=== PATIENT | female | born 1985 | race Caucasian/White ===

== ENCOUNTER 2016-04-27 22:40 | Emergency (ER) | payer OTHER ==
--- NOTE | ~2016-04-27 | CT4 ---
[facility] A Service of [facility] RADIOLOGY TEXT RESULTS PATIENT: TRIPP WING LOCATION: [facility] : 87 UNIT #: [id number] AGE: [address]: Neno Brenner MD SEX: F ORDER DR: [id number] [facility] [address] [place], [place] [address] [id number] MR#: [id number] Acc #: [id number] NAME: TRIPP WING : 1985 SEX: F STUDY DATE/TIME: 04/27/2016 23:22 UNIT: [facility] ROOM: STUDY DESCRIPTION: CT Abd and Pelv Wo Cont Attending Physician: Neno Brenner Ordering Physician: Cristian Harrell M.D. Primary Care Physician: Brianna uKo M.D. MEDICAL IMAGING REPORT This report is preliminary unless electronic signature is present EXAM CT abdomen and pelvis, noncontrast, kidney stone protocol, 04/27/2016 HISTORY 30-year-old female in the ED complaining of 4-day history of right flank pain. Prior history of kidney stones. TECHNIQUE CT examination of the abdomen and pelvis was performed without oral or IV contrast using kidney stone protocol. This CT exam was performed with one or more of the following radiation dose reduction techniques: automatic exposure control, adjustment of mA and/or kV according to patient size, and iterative reconstruction. COMPARISON CT stone study 03/21/2016. FINDINGS Abdomen: 2 mm nonobstructing calculus in the right mid kidney is unchanged. Kidneys, ureters and urinary bladder are otherwise negative. No ureteral stone material is seen, there is no evidence of urinary obstruction at this time. Cholecystectomy. No bile duct dilatation. The liver, pancreas and spleen are negative. Small bowel and colon are normal in caliber and appearance. The appendix is normal. Normal-caliber abdominal aorta. Pelvis: Uterus, adnexal regions, bladder and rectum are within normal limits. No inguinal hernia. Limited lung base images show no active disease in the lower chest. IMPRESSION [facility] A Service of [facility] RADIOLOGY TEXT RESULTS PATIENT: TRIPP WING [id number] [birth year] UNIT #: [id number] AGE: [address]: Neno Brenner MD SEX: F ORDER DR: 1. No acute abnormality within the abdomen or pelvis. 2. 2 mm nonobstructing right mid renal calculus. 3. The appendix is normal. 4. No change since 03/21/2016. Dictated by... Kishan Dong M.D. THIS IS AN ELECTRONICALLY VERIFIED REPORT Kishan Dong M.D. at 04/28/2016 9:42 PM ABHISHEK/miriam TD: 04/28/2016 11:52 JOB #: [id number] MEDICAL IMAGING REPORT Page 1 of 1 COPY
[2016-04-27 19:08] LABS: URINE SOURCE CLEAN CATCH
[2016-04-27 19:14] LABS: URINE APPEARANCE CLEAR; URINE BILIRUBIN NEG (NEG); URINE BLOOD 2+ (NEG); URINE COLOR YELLOW; URINE GLUCOSE NEG (NEG); URINE KETONE NEG (NEG); URINE LEUKOCYTE ESTERASE NEG (NEG); URINE NITRATE NEG (NEG); URINE PH 6.5 (5-8); URINE PROTEIN NEG (NEG); URINE SPECIFIC GRAVITY 1.009 (1.003-1.035); URINE UROBILINOGEN 0.2 MG/DL (NEG)
[2016-04-27 19:16] LABS: URINE BACTERIA AUWI NEG (NEGATIVE); URINE SQUAMOUS EPITHELIAL CELL NONE SEEN /[HPF]
[2016-04-27 19:32] LABS: CULTURE INDICATED? NO
[~2016-04-27 22:40] MED LIST: ACETAMINOPHEN PR; ATIVAN; ATIVAN PO; COREG PO; CREON 10 CAPSU249 MG; DIFLUCAN PO; FLAGYL PO; GEODAN; HUMALOG MIX 75/23 ML; HUMALOG100 U/M1; HUMALOG100 U/ML; INSULIN PUMP SUBQ; LANTUS100 U/ML; LANTUS100 U/ML SUBQ; LANTUS100 UNITS/ SUBQ; LEVAQUIN PO; LEXAPRO; LUNESTA; MELATONIN3 MG; NEXIUM; NICOTINE T1 PATCH .2; NOVOLIN R100 U/ML; NOVOLOG100 U/ML; NOVOLOG100 U/ML SUBQ; NOVOLOG100 UNITS/ SUBQ; PHENERGAN; PRILOSEC PO; PROBIOTIC250 MG PO; PROTONIX; ROBAXIN PO; SEROQUEL; TOPAMAX; TOPAMAX PO; TYLENOL325 M1 PO; ULTRAM PO; WELLBUTRIN XL; ZOFRAN ODT4 MG PO; ZOLOFT
[2016-04-27 23:29] LABS: BASOPHIL# 0.1 X10e3 (0-0.3); BASOPHIL% 0.7 % (0-2.5); EOSINOPHIL# 0.4 X10e3 (0-0.7); EOSINOPHIL% 3.6 % (0.0-7.0); HEMATOCRIT 40.5 % (35.0-45.0); HEMOGLOBIN 13.3 gm/dL (12.0-16.0); LYMPHOCYTE# 4.2 X10e3 (1.0-3.5); LYMPHOCYTE% 41.9 % (17.0-45.0); MEAN CELL VOLUME 95.3 FL (83-96); MEAN CORPUSCULAR HEMOGLOBIN 31.2 PG (28-34); MEAN CORPUSCULAR HGB CONC 32.8 g/dL (30-36); MEAN PLATELET VOLUME 8.7 FL (6.5-11.5); MONOCYTE# 0.8 X10e3 (0-1.0); MONOCYTE% 8.2 % (3.0-12.0); NEUTROPHIL# 4.6 X10e3 (1.5-7.1); NEUTROPHIL% 45.6 % (40-75); PLATELET COUNT 299 X10e3 (140-420); RED BLOOD COUNT 4.25 X10e (3.90-5.30); RED CELL DISTRIBUTION WIDTH 12.8 % (11.0-15.5); WHITE BLOOD COUNT 10.1 X10e3 (4.0-10.5)
[2016-04-27 23:30] LABS: DIFF IND NO
[2016-04-27 23:53] LABS: ALKALINE PHOSPHATASE 97 U/L (32-92); ALT (SGPT) 35 U/L (10-40); AST (SGOT) 29 U/L (10-42); BILIRUBIN, DIRECT 0.1 mg/dL (0.0-0.2); BILIRUBIN,INDIRECT 0.6 mg/dL (0.0-0.9); BILIRUBIN,TOTAL 0.7 mg/dL (0.2-2.0); BLOOD UREA NITROGEN 19 mg/dL (9-23); BUN/CREATININE RATIO 31.66; CARBON DIOXIDE 28 mmol/L (22-31); CHLORIDE 102 mmol/L (100-111); CREATININE SERUM 0.6 mg/dL (0.6-1.4); GLOM FILT RATE Estimated ABOVE60 mL/min (>60); GLUCOSE FASTING 154 mg/dL (70-110); LIPASE 23 U/L (22-51); POTASSIUM 3.9 mmol/L (3.5-5.1); PROTEIN TOTAL SERUM 7.1 g/dL (6.0-8.3); SODIUM 138 mmol/L (135-145)
== END 2016-04-28 01:15 | disposition home or self-care (01) ==
LOC: CED 22:40
PROVIDERS: Emergency Medicine
DX: K59.00 Constipation, unspecified (principal); F17.210 Nicotine dependence, cigarettes, uncomplicated
CPT/HCPCS: 36415; 74176; 80048; 80076; 81003; 82947; 83690; 84703; 85025; 99284